=== PATIENT | male | born 1985 | race Caucasian/White ===

== ENCOUNTER 2020-07-03 02:40 | Emergency (ER) | payer SELFPAY ==
[~2020-07-03] VITALS: Ht 172.7 cm; Wt 63.0 kg
[2020-07-03 04:16] LABS: BASOPHILS % 0.6 % (0.0-2.0); EOSINOPHILS % 1.4 % (0.0-5.0); HEMATOCRIT. 40.1 % (42.0-52.0); HEMOGLOBIN. 14.3 g/dL (14.0-18.0); LYMPHOCYTES % 36.9 % (20.0-50.0); MEAN CORPUSCULAR HEMOGLOBIN 32.9 pg (28.0-32.0); MEAN CORPUSCULAR VOLUME 92.4 fL (80.0-94.0); MONOCYTES % 9.7 % (2.0-8.0); NEUTROPHILS % 51.4 % (40.0-76.0); PLATELET 167 x1000/uL (130-400); RED BLOOD CELL COUNT 4.34 mill/uL (4.7-6.1)
[2020-07-03 04:22] LABS: CHLORIDE 107 mEq/L (98-107)
[2020-07-03 05:05] VITALS: BP 121/74
== END 2020-07-03 05:06 | disposition home or self-care (01) ==
LOC: ER 02:40
DX: R19.7 Diarrhea, unspecified (principal)
CPT/HCPCS: 36415; 71045; 80053; 85025; 99284